=== PATIENT | female | born 1970 | race Caucasian/White ===

== ENCOUNTER → 2016-11-24 | Outpatient (CLI) | payer OTHER | LOC: BMCIMAGING 07:27 | PROVIDERS: ATTEND Internal Medicine | DX: Z12.31 Encounter for screening mammogram for malignant neoplasm of breast (principal); D25.1 Intramural leiomyoma of uterus; D25.2 Subserosal leiomyoma of uterus | CPT/HCPCS: G0202 ==

== ENCOUNTER → 2017-12-31 | Outpatient (CLI) | payer BC | LOC: BMCIMAGING 08:13 | PROVIDERS: ATTEND Internal Medicine | DX: Z12.31 Encounter for screening mammogram for malignant neoplasm of breast (principal); Z80.3 Family history of malignant neoplasm of breast ==

== ENCOUNTER → 2018-07-14 | Outpatient (CLI) | payer OTHER | LOC: BMCIMAGING 10:49 | PROVIDERS: ATTEND Internal Medicine | DX: N64.4 Mastodynia (principal) ==

== ENCOUNTER 2018-08-30 15:42 | Emergency (ER) | payer OTHER ==
[2018-08-30] MEDS ORDERED: TDAP ADULT 0.5 ML INJ (BOOSTRIX) IM ONE (16:09)
--- NOTE | 2018-08-30 16:33 | EDPHY ---
H & P Stated Complaint: L 5th finger lac Time Seen by Provider: 08/30/18 15:51 HPI/ROS: CHIEF COMPLAINT: Left pinky laceration HISTORY OF PRESENT ILLNESS: The patient is a 40-year-old female who was chopping onions and accidentally amputated the distal tip of her left pinky. It does involve the very tip of her finger nail. She initially presented to the urgent care who recommended she come to the ER. She denies other injuries. Severity: Moderate Modifying factors: None REVIEW OF SYSTEMS: Constitutional: denies: chills, fever, recent illness, recent injury EENTM: denies: blurred vision, double vision, nose congestion Respiratory: denies: cough, shortness of breath Cardiac: denies: chest pain, irregular heart rate, lightheadedness, palpitations Gastrointestinal/Abdominal: denies: abdominal pain, diarrhea, nausea, vomiting, blood streaked stools Genitourinary: denies: dysuria, frequency, hematuria, pain Musculoskeletal: denies: joint pain, muscle pain Skin: See HPI Neurological: denies: headache, numbness, paresthesia, tingling, dizziness, weakness Hematologic/Lymphatic: denies: blood clots, easy bleeding, easy bruising Immunologic/allergic: denies: HIV/AIDS, transplant 10 systems reviewed and negative except as noted EXAM: GENERAL: Well-appearing, well-nourished and in no acute distress. HEAD: Atraumatic, normocephalic. EYES: Pupils equal round and reactive to light, extraocular movements intact, sclera anicteric, conjunctiva are normal. ENT: TMs normal, nares patent, oropharynx clear without exudates. Moist mucous membranes. NECK: Normal range of motion, supple without lymphadenopathy or JVD. LUNGS: Breath sounds clear to auscultation bilaterally and equal. No wheezes rales or rhonchi. HEART: Regular rate and rhythm without murmurs, rubs or gallops. ABDOMEN: Soft, nontender, normoactive bowel sounds. No guarding, no rebound. No masses appreciated. BACK: No CVA tenderness, no spinal tenderness, step-offs or deformities EXTREMITIES: See below Normal range of motion, no pitting or edema. No clubbing or cyanosis. NEUROLOGICAL: Cranial nerves II through XII grossly intact. Normal speech, normal gait. 5/5 strength, normal movement in all extremities, normal sensation , normal reflexes PSYCH: Normal mood, normal affect. SKIN: See diagram, amputated tip of finger, holding on by very small piece. Does involve the tip of the finger nail. Source: Patient Exam Limitations: No limitations - Personal History Current Tetanus/Diphtheria Vaccine: Unsure Current Tetanus Diphtheria and Acellular Pertussis (TDAP): Unsure - Medical/Surgical History Hx Asthma: Yes Hx Chronic Respiratory Disease: No Hx Diabetes: No Hx Cardiac Disease: No Hx Renal Disease: No Hx Cirrhosis: No Hx Alcoholism: No Hx Splenectomy or Spleen Trauma: No Other PMH: asthma, ortho surgeries - Social History Smoking Status: Never smoked Alcohol Use: None Constitutional: Initial Vital Signs Temperature (C) 36.8 C 08/30/18 15:45 Heart Rate 106 H 08/30/18 15:45 Respiratory Rate 16 08/30/18 15:45 Blood Pressure 138/93 H 08/30/18 15:45 O2 Sat (%) 98 08/30/18 15:45 O2 Delivery Mode Room Air Allergies/Adverse Reactions: Sulfa (Sulfonamide Antibiotics) Allergy (Verified 08/30/18 15:45) Home Medications: Medication Instructions Recorded PROV[facility]IL HFA 08/30/18 ED Images - Extremities Fingertip Front/Back: 1 - Amputation of finger tip. Does involve the tip of the finger nail. Not salvageable. No bony involvement. Medical Decision Making Procedures: Procedure: Laceration repair. Verbal consent was obtained from the patient. The finger tip laceration was anesthetized with 0.5% bupivacaine digital block. The wound was irrigated copiously according to protocol, draped and explored to its base. There were no deep structures involved. It does involve the tip of the finger nail and nail bed. No tendon, nerve, or vascular injury was identified when explored [ through full range of motion]. No bony involvement. No foreign body was identified. The finger tip amputation was completed. Patient tolerated the procedure well. ED Course/Re-evaluation: Patient had an amputation to the very tip of her left pinky finger. Was having on very very small thread of skin. We discussed options including tacking down verses amputation. I do not believe that the amputated tip will survive. After discussion I completed the amputation. I believe that this will give the best cosmetic result as well as lowest risk for infection. There is no bone exposed. Patient is happy with this. It was dressed with Surgicel and Xeroform. Differential Diagnosis: Partial list of the Differential diagnosis considered include but were not limited to; finger tip amputation, laceration and although unlikely based on the history and physical exam, I also considered fracture, foreign body. I discussed these differential diagnoses and the plan with the patient as well as the usual and expected course. The patient understands that the diagnosis is provisional and that in medicine we are not always correct and that further workup is often warranted. Usual and customary warnings were given. All of the patient's questions were answered. The patient was instructed to return to the emergency department should the symptoms at all worsen or return, otherwise to followup with the physician as we discussed. - Data Points Medications Given: Discontinued Medications Diphtheria/Tetanus/Acell Pertussis (Boostrix) 0.5 ml IM .ONCE ONE Stop: 08/30/18 16:10 Last Admin: 08/30/18 16:16 Dose: 0.5 ml Departure - Departure Disposition: Home, Routine, Self-Care Clinical Impression: Traumatic amputation of tip of finger of left hand Condition: Fair Instructions: Finger Amputation (ED) Referrals: Desirae Hernandez MD [Primary Care Provider] - As per Instructions Vahid Angel MD [Medical Doctor] - 2-3 days, if not improved
[2018-08-30 16:50] VITALS: BP 97/77
== END 2018-08-30 16:50 | disposition home or self-care (01) ==
PROC: 0HDGXZZ Extraction of Left Hand Skin, External Approach (ICD-10-PCS; principal; 2018-08-30)
PROC: 0HDQXZZ Extraction of Finger Nail, External Approach (ICD-10-PCS; principal; 2018-08-30)
DX: S61.307A Unspecified open wound of left little finger with damage to nail, initial encounter (principal); Z23 Encounter for immunization; W26.0XXA Contact with knife, initial encounter; Y93.G1 Activity, food preparation and clean up; Y92.9 Unspecified place or not applicable; Y99.9 Unspecified external cause status